=== PATIENT | female | born 1960 | race Two or more races ===

== ENCOUNTER 2017-07-25 17:04 | Emergency (ER) | payer MEDICAID ==
[~2017-07-25] VITALS: Ht 160 cm; Wt 76.7 kg
[2017-07-25 17:22] VITALS: BP 130/72
== END 2017-07-25 21:28 | disposition left against medical advice (07) ==
LOC: ER 17:13
DX: S61.210A Laceration without foreign body of right index finger without damage to nail, initial encounter (principal); Z53.21 Procedure and treatment not carried out due to patient leaving prior to being seen by health care provider; W26.0XXA Contact with knife, initial encounter; Y93.89 Activity, other specified; Y92.89 Other specified places as the place of occurrence of the external cause; Y99.8 Other external cause status